=== PATIENT | male | born 1950 | race Two or more races ===

== ENCOUNTER 2023-04-07 16:14 | Inpatient (IN) | payer OTHER ==
[~2023-04-07] VITALS: Ht 154.9 cm; Wt 64.2 kg
[2023-04-07] VITALS (27 sets, daily range): BP systolic 124–149; BP diastolic 71–84; PULSE 80–96; RESP 10–25; TEMP 98.3–98.6; O2SAT 89–99
[2023-04-07] MEDS: MORPHINE SULFATE INJ 2 MG/ml SYRG IV ONE (16:30)
[2023-04-07] MEDS: ONDANSETRON HCL 4 MG/2 ML VIAL IV ONE (16:30)
[2023-04-07] MEDS: HEPARIN SODIUM (PORCINE) 5000 UNITS/ML 1ML VIAL IV ONE (16:30)
[2023-04-07] MEDS: SODIUM CHLORIDE 0.9% 1,000 ML IV ONE (16:30)
[2023-04-07] MEDS: TICAGRELOR 90 MG TAB PO ONE (16:30)
[2023-04-07] MEDS: HEPARIN SODIUM (PORCINE) 5000 UNITS/ML 1ML VIAL ONE (16:31)
[2023-04-07] MEDS: LIDOCAINE 2%HCL (LOCAL ANESTH.) INJ 10ml MDV ONE (16:34)
[2023-04-07] MEDS: fentaNYL CITRATE 100 MCG/2 ML VL ONE (16:36)
[2023-04-07] MEDS: VERAPAMIL 2.5MG/ML INJ 2ML VIAL IV ONE (16:36)
[2023-04-07] MEDS: ANGIOMAX 250 MG VIAL IV ONE (16:36)
[2023-04-07] MEDS: SODIUM CHL 0.9% 50 ML ONE (16:37)
[2023-04-07] MEDS: MIDAZOLAM HCL 2MG/2ML 2ml VIAL (1mg/ml) ONE (16:37)
[2023-04-07] MEDS ORDERED: LORazepam 0.5 MG TAB PO PRN (16:45)
[2023-04-07] MEDS ORDERED: ONDANSETRON HCL 4 MG/2 ML VIAL IV PRN (16:45)
[2023-04-07] MEDS ORDERED: NITROGLYCERIN 0.4 MG SL TAB SL PRN (16:45)
[2023-04-07] MEDS ORDERED: MORPHINE SULFATE 4 MG/ML SYR/VIAL IV PRN (16:45)
[2023-04-07] MEDS: IODIXANOL 320MG/ML 100ML BTL IV ONE ×2 (16:47→17:01)
[2023-04-07 17:10] LABS: Magnesium 1.5 mg/dL (1.6-2.6)
[2023-04-07 17:12] LABS: Phosphorus 3.6 mg/dL (2.4-5.1)
[2023-04-07 17:13] LABS: INR 1.09 (0.9-1.15); Prothrombin Time 11.4 sec (9.3-11.8)
[2023-04-07] MEDS: TICAGRELOR 90 MG TAB ONE (17:38)
[2023-04-07] MEDS: CLOPIDOGREL BISULFATE 75 MG TAB ONE ×2 (17:38)
[2023-04-07] MEDS: CLOPIDOGREL BISULFATE 75 MG TAB PO ONE (17:38)
[2023-04-07] MEDS: EPTIFIBATIDE DRIP(0.75MG/ML) 100 ML IV ONE (17:41)
[2023-04-07 17:45] LABS: Basophils # (auto) 0.1 10 ^3/uL (0-0.2); Eosinophils # (auto) 0.2 10 ^3/uL (0-0.8); Eosinophils % (auto) 1.3 % (0.0-7.0); Hematocrit 34.7 % (41.0-53.0); Hemoglobin 11.1 g/dL (13.5-17.5); Lymphocytes # (auto) 2.1 10 ^3/uL (0.4-5.4); Mean Corpuscular Hemoglobin 29.1 pg (28.0-32.0); Mean Corpuscular Hgb Conc. 31.9 g/dL (32.0-36.0); Mean Corpuscular Volume 91.5 fL (80.0-100.0); Monocytes # (auto) 0.8 10 ^3/uL (0-1.3); Monocytes % (auto) 6.1 % (0.0-12.0); Neutrophils % (auto) 75.6 % (37.0-80.0); Red Cell Distribution Width 15.7 % (11.8-14.3); White Blood Cell 13.3 10^3/uL (4.4-10.8)
[2023-04-07 17:53] LABS: Alanine Aminotransferase 44 U/L (7-40); Albumin 3.9 g/dL (3.2-4.8); Alkaline Phosphatase 187 U/L (46-116); Anion Gap 10 (5-15); Aspartate Aminotransferase 42 U/L (13-40); BUN/Creatinine Ratio 21.5 (10.0-20.0); Bilirubin, Total 0.3 mg/dL (0.2-1.0); Blood Urea Nitrogen 20 mg/dL (9-23); Calcium 8.9 mg/dL (8.5-10.1); Carbon Dioxide 24 mmol/L (20-30); Chloride 106 mmol/L (98-107); Cholesterol 102 mg/dL (< 200); Glucose 118 mg/dL (74-106); HDL Cholesterol 24 mg/dL (40-59); LDL Cholesterol 55 mg/dL (< 100); Potassium 3.7 mmol/L (3.5-5.1); Sodium 140 mmol/L (136-145); Triglycerides 176 mg/dL (< 150)
[2023-04-07 17:54] LABS: Total Protein 7.5 g/dL (5.7-8.2)
[2023-04-07] MEDS: EPTIFIBATIDE DRIP(0.75MG/ML) 100 ML IV SCH (18:54)
[2023-04-07] MEDS: MAGNESIUM SULFATE 1GM/100ML 100 ML IV ONE ×2 (18:57→20:50)
[2023-04-07] MEDS ORDERED: hydrALAZINE HCL 20 MG/ML VL IV PRN (20:45)
[2023-04-07] MEDS ORDERED: DEXTROSE (50%) 50ML SYRG IV PRN (20:45)
[2023-04-07] MEDS: ACETAMINOPHEN 325 MG TAB PO PRN (20:54)
[2023-04-07] MEDS: FUROSEMIDE 20 MG/2 ML VIAL IV ONE (20:57)
[2023-04-07] MEDS: METOPROLOL TARTRATE 25 MG TAB PO SCH (22:10)
[2023-04-07] MEDS: ACCU-CHEK COMFORT CURVE STRIP VI SCH (22:11)
[2023-04-07] MEDS: ATORVASTATIN 20 MG TAB PO SCH (22:11)
[2023-04-07] MEDS: InsuLIN REG 1unit/0.01ml Soln (100units/ml) SC SCH (22:22)
[2023-04-07] MEDS: cefTRIAXone 2GM/50ML D5W 50 ML IV ONE (22:36)
[2023-04-08] VITALS (69 sets, daily range): BP systolic 101–142; BP diastolic 60–82; PULSE 73–96; RESP 11–28; TEMP 97.8–98.7; O2SAT 83–98
[2023-04-08] MEDS: HYDROcodone-ACET 5/325MG TAB PO PRN (00:17)
[2023-04-08 04:29] LABS: Basophils # (auto) 0.1 10 ^3/uL (0-0.2); Basophils % (auto) 0.6 % (0.0-2.0); Eosinophils # (auto) 0.2 10 ^3/uL (0-0.8); Eosinophils % (auto) 1.1 % (0.0-7.0); Hematocrit 35.8 % (41.0-53.0); Hemoglobin 11.3 g/dL (13.5-17.5); Lymphocytes # (auto) 1.4 10 ^3/uL (0.4-5.4); Lymphocytes % (auto) 9.4 % (10.0-50.0); Mean Corpuscular Hemoglobin 28.4 pg (28.0-32.0); Mean Corpuscular Hgb Conc. 31.7 g/dL (32.0-36.0); Mean Corpuscular Volume 89.8 fL (80.0-100.0); Monocytes # (auto) 1.1 10 ^3/uL (0-1.3); Monocytes % (auto) 7.7 % (0.0-12.0); Neutrophils # (auto) 11.9 10 ^3/uL (1.6-8.6); Neutrophils % (auto) 81.2 % (37.0-80.0); Nucleated Red Blood Cells % 0.1 %; Red Blood Cells 3.99 10^6/uL (4.5-5.90); Red Cell Distribution Width 15.8 % (11.8-14.3); White Blood Cell 14.6 10^3/uL (4.4-10.8)
[2023-04-08 05:26] LABS: Alanine Aminotransferase 49 U/L (7-40); Albumin 3.7 g/dL (3.2-4.8); Alkaline Phosphatase 169 U/L (46-116); Anion Gap 8 (5-15); Aspartate Aminotransferase 175 U/L (13-40); BUN/Creatinine Ratio 18.9 (10.0-20.0); Blood Urea Nitrogen 17 mg/dL (9-23); Carbon Dioxide 26 mmol/L (20-30); Chloride 102 mmol/L (98-107); Glucose 87 mg/dL (74-106); Magnesium 1.9 mg/dL (1.6-2.6); Potassium 3.4 mmol/L (3.5-5.1); Sodium 136 mmol/L (136-145)
[2023-04-08 05:27] LABS: Bilirubin, Total 0.3 mg/dL (0.2-1.0); Total Protein 7.7 g/dL (5.7-8.2)
[2023-04-08] MEDS: ASPirin 81 mg TAB PO SCH (10:32)
[2023-04-08] MEDS: MAGNESIUM OXIDE 400 MG TAB PO ONE (10:33)
[2023-04-08] MEDS: POTASSIUM CHL 20 Meq TABLET PO ONE (10:33)
[2023-04-08] MEDS: CLOPIDOGREL BISULFATE 75 MG TAB PO SCH (10:34)
[2023-04-08] MEDS: DOCUSATE SOD 100 MG CAP PO SCH (10:34)
[2023-04-08] MEDS: cefTRIAXone 1GM/50ML D5W 50 ML IV ONE (11:15)
[2023-04-08 11:30] LABS: % Iron Saturation 17.5 % (20-55)
[2023-04-08 11:32] LABS: Ferritin 172.3 ng/mL (22-322)
[2023-04-08] MEDS ORDERED: DEXTROSE (50%) 50ML SYRG IV PRN (17:00)
[2023-04-08] MEDS: ACCU-CHEK COMFORT CURVE STRIP VI SCH (18:58)
[2023-04-08] MEDS: InsuLIN REG 1unit/0.01ml Soln (100units/ml) SC SCH ×2 (19:00→22:03)
[2023-04-09] VITALS (7 sets, daily range): BP systolic 99–127; BP diastolic 68–74; PULSE 75–93; RESP 16–20; TEMP 97.5–99.1; O2SAT 93–96
[2023-04-09 07:04] LABS: Basophils # (auto) 0.1 10 ^3/uL (0-0.2); Basophils % (auto) 0.4 % (0.0-2.0); Eosinophils # (auto) 0.2 10 ^3/uL (0-0.8); Eosinophils % (auto) 1.3 % (0.0-7.0); Hematocrit 33.9 % (41.0-53.0); Hemoglobin 10.9 g/dL (13.5-17.5); Lymphocytes # (auto) 1.8 10 ^3/uL (0.4-5.4); Lymphocytes % (auto) 13.9 % (10.0-50.0); Mean Corpuscular Hemoglobin 29.1 pg (28.0-32.0); Mean Corpuscular Hgb Conc. 32.1 g/dL (32.0-36.0); Mean Corpuscular Volume 90.8 fL (80.0-100.0); Monocytes # (auto) 1.1 10 ^3/uL (0-1.3); Monocytes % (auto) 8.7 % (0.0-12.0); Neutrophils # (auto) 9.9 10 ^3/uL (1.6-8.6); Neutrophils % (auto) 75.7 % (37.0-80.0); Nucleated Red Blood Cells % 0.1 %; Red Blood Cells 3.74 10^6/uL (4.5-5.90); Red Cell Distribution Width 15.9 % (11.8-14.3); White Blood Cell 13.1 10^3/uL (4.4-10.8)
[2023-04-09 07:19] LABS: Alanine Aminotransferase 45 U/L (7-40); Albumin 3.6 g/dL (3.2-4.8); Alkaline Phosphatase 161 U/L (46-116); Anion Gap 5 (5-15); Aspartate Aminotransferase 97 U/L (13-40); BUN/Creatinine Ratio 18.5 (10.0-20.0); Blood Urea Nitrogen 20 mg/dL (9-23); Calcium 9.1 mg/dL (8.7-10.4); Carbon Dioxide 27 mmol/L (20-30); Chloride 104 mmol/L (98-107); Glucose 101 mg/dL (74-106); Magnesium 2.1 mg/dL (1.6-2.6); Potassium 4.3 mmol/L (3.5-5.1); Sodium 136 mmol/L (136-145)
[2023-04-09 07:20] LABS: Bilirubin, Total 0.4 mg/dL (0.2-1.0); Total Protein 7.3 g/dL (5.7-8.2)
[2023-04-09 08:41] LABS: Erythrocyte Sedimentation Rate 56 mm/hr (0-20)
[2023-04-09] MEDS ORDERED: cefTRIAXone 1GM/50ML D5W 50 ML IV SCH (09:00)
[2023-04-09] MEDS: cefTRIAXone 1GM/50ML D5W 50 ML IV SCH (10:04)
[2023-04-09 16:49] LABS: Urine Bacteria NONE SEEN /hpf (None Seen); Urine Blood Negative /uL (Negative); Urine Clarity Clear (Clear); Urine Color Colorless (Yellow); Urine Protein, UAD Negative (Negative); Urine Specific Gravity 1.023 (1.001-1.035); Urine Urobilinogen Normal (Negative); Urine WBC <1 /hpf (0 - 3)
[2023-04-10 04:57] LABS: Basophils # (auto) 0 10 ^3/uL (0-0.2); Basophils % (auto) 0.4 % (0.0-2.0); Eosinophils # (auto) 0.2 10 ^3/uL (0-0.8); Eosinophils % (auto) 1.7 % (0.0-7.0); Hemoglobin 10.9 g/dL (13.5-17.5); Lymphocytes # (auto) 1.5 10 ^3/uL (0.4-5.4); Lymphocytes % (auto) 12.2 % (10.0-50.0); Mean Corpuscular Hemoglobin 29.5 pg (28.0-32.0); Mean Corpuscular Hgb Conc. 32.9 g/dL (32.0-36.0); Mean Corpuscular Volume 89.6 fL (80.0-100.0); Monocytes # (auto) 1.1 10 ^3/uL (0-1.3); Monocytes % (auto) 8.8 % (0.0-12.0); Neutrophils # (auto) 9.3 10 ^3/uL (1.6-8.6); Neutrophils % (auto) 76.9 % (37.0-80.0); Red Blood Cells 3.68 10^6/uL (4.5-5.90); Red Cell Distribution Width 16.1 % (11.8-14.3)
[2023-04-10 04:59] VITALS: BP 107/58; PULSE 86; RESP 12; TEMP 98.8; O2SAT 98
[2023-04-10 05:17] LABS: Alanine Aminotransferase 41 U/L (7-40); Albumin 3.6 g/dL (3.2-4.8); Alkaline Phosphatase 157 U/L (46-116); Anion Gap 6 (5-15); Aspartate Aminotransferase 65 U/L (13-40); BUN/Creatinine Ratio 20.8 (10.0-20.0); Bilirubin, Total 0.6 mg/dL (0.2-1.0); Blood Urea Nitrogen 22 mg/dL (9-23); Calcium 9.2 mg/dL (8.7-10.4); Carbon Dioxide 27 mmol/L (20-30); Chloride 104 mmol/L (98-107); Glucose 154 mg/dL (74-106); Potassium 4.1 mmol/L (3.5-5.1); Sodium 137 mmol/L (136-145); Total Protein 7.3 g/dL (5.7-8.2)
[2023-04-10 08:00] VITALS: PULSE 87; PULSE 88; RESP 18; O2SAT 96
[2023-04-10 08:53] LABS: Hepatitis B Surface Antigen Negative (Negative)
[2023-04-10 09:00] VITALS: BP 112/77; PULSE 87; RESP 18; TEMP 98.7; O2SAT 92
[2023-04-10 09:14] LABS: Hepatitis A Ab IgM Negative
[2023-04-10 09:15] LABS: Hepatitis B Core IgM Negative; Hepatitis C Antibody Negative (Negative)
[2023-04-10 10:48] LABS: Free T3 2.32 pg/mL (2.3-4.2); Free T4 (Free Thyroxine) 0.99 ng/dL (0.89-1.76)
[2023-04-10 10:50] LABS: Folate (Folic Acid) 8.36 ng/mL (>5.38)
[2023-04-10] MEDS ORDERED: TRAM50TA2 PO (12:15)
[2023-04-10] MEDS ORDERED: AMIO200T33 PO (12:15)
[2023-04-10] MEDS ORDERED: COLCPOW2 PO (12:15)
[2023-04-10 12:40] VITALS: BP 106/67; PULSE 72; RESP 18; TEMP 98.4; O2SAT 98
== END 2023-04-10 17:00 | disposition left against medical advice (07) | DRG 250 ==
LOC: ER 16:14 → EDBD 16:14 → TELE 16:37 → ICU WEST 18:28 → TELE-CENTR 04-08 16:05
PROVIDERS: ADMIT Internal Medicine Geriatric Medicine; ATTEND Internal Medicine Geriatric Medicine
PROC: 4A023N7 Measurement of Cardiac Sampling and Pressure, Left Heart, Percutaneous Approach (ICD-10-PCS; principal; 2023-04-07)
PROC: 02703ZZ Dilation of Coronary Artery, One Artery, Percutaneous Approach (ICD-10-PCS; 2023-04-07)
PROC: B2111ZZ Fluoroscopy of Multiple Coronary Arteries using Low Osmolar Contrast (ICD-10-PCS; 2023-04-07)
PROC: B2151ZZ Fluoroscopy of Left Heart using Low Osmolar Contrast (ICD-10-PCS; 2023-04-07)
DX: I21.19 ST elevation (STEMI) myocardial infarction involving other coronary artery of inferior wall (principal); I50.33 Acute on chronic diastolic (congestive) heart failure; Q25.0 Patent ductus arteriosus; L02.31 Cutaneous abscess of buttock; I11.0 Hypertensive heart disease with heart failure; E78.5 Hyperlipidemia, unspecified; E11.9 Type 2 diabetes mellitus without complications; I25.10 Atherosclerotic heart disease of native coronary artery without angina pectoris; E66.9 Obesity, unspecified; G47.33 Obstructive sleep apnea (adult) (pediatric); E87.6 Hypokalemia; M19.011 Primary osteoarthritis, right shoulder; M54.30 Sciatica, unspecified side; Z79.4 Long term (current) use of insulin; Z95.2 Presence of prosthetic heart valve; Z68.27 Body mass index [BMI] 27.0-27.9, adult
CPT/HCPCS: 36415; 71045; 72192; 76881; 80053; 80061; 80074; 81001; 82306; 82607; 82728; 82746; 82962; 83036; 83540; 83550; 83690; 83735; 83880; 84100; 84439; 84443; 84481; 84484; 85025; 85045; 85610; 85652; 86141; 86850; 86900; 86901; 87081; 92920; 93005; 93306; 93458; 96361; 96374; 99152; G0378; J1815; J2001; J2250; Q9967